=== PATIENT | female | born 1990 | race Asian ===

== ENCOUNTER 2021-02-27 12:15 | Emergency (ER) | payer SELFPAY ==
[~2021-02-27] VITALS: Ht 160 cm; Wt 54.4 kg
[2021-02-27 12:47] VITALS: BP 112/72
--- NOTE | 2021-02-27 12:55 | NUR ---
PATIENT SENT TO LOBBY
--- NOTE | 2021-02-27 13:08 | NUR ---
Patient ambulated to bed 12. RN evaluating the patient at bedside.
--- NOTE | 2021-02-27 13:28 | NUR ---
30/F presents to ED with c/o symptoms. Patient states she is approximately "six weeks " and states she usually is sick during her past pregnancies. Patient states "my nausea and vomiting stopped and I am concerned if my baby is okay." Patient states she has no pain, nausea or vomiting at this time. Patient is A1.
[2021-02-27 14:29] VITALS: BP 112/72
--- NOTE | 2021-02-27 14:30 | NUR ---
Patient discharged with v/s stable. Written and verbal after care instructions given and explained. Patient verbalized understanding. Ambulatory with steady gait. All questions addressed prior to discharge. Advised to follow up with PMD.
== END 2021-02-27 14:30 | disposition home or self-care (01) ==
LOC: MED 12:15
DX: O26.891 Other specified pregnancy related conditions, first trimester (principal); T75.3XXA Motion sickness, initial encounter; Z3A.01 Less than 8 weeks gestation of pregnancy
CPT/HCPCS: 81002; 81025; 99284